=== PATIENT | male | born 1990 | race Caucasian/White ===

== ENCOUNTER 2018-04-07 18:36 | Emergency (ER) | payer SELFPAY ==
[2018-04-07] MEDS ORDERED: ACETAMINOPHEN 500 MG TAB PO ONE (20:01)
[2018-04-07] MEDS ORDERED: IBUPROFEN 600 MG TAB PO ONE (20:01)
--- NOTE | 2018-04-07 20:03 | EDPHY ---
H & P Stated Complaint: Right ankle pain Time Seen by Provider: 04/07/18 18:40 HPI/ROS: Chief complaint: Right ankle injury History of present illness: This is a 28-year-old male who presents to the emergency department for right ankle injury. Patient is steps today twisting his ankle. Since then he has had pain and swelling primarily to the inner aspect of the ankle. Makes it difficult to ambulate. No report of open wounds. No abnormal coolness or paresthesias. No other trauma reported. - Personal History Current Tetanus Diphtheria and Acellular Pertussis (TDAP): Unsure - Medical/Surgical History Hx Asthma: No Hx Chronic Respiratory Disease: No Hx Diabetes: No Hx Cardiac Disease: No Hx Renal Disease: No Hx Cirrhosis: No Hx Alcoholism: No Hx HIV/AIDS: No Hx Splenectomy or Spleen Trauma: No Other PMH: None - Social History Smoking Status: Current every day smoker - Physical Exam Exam: General: Alert, nontoxic Skin: No open wounds to the right lower extremity. Musculoskeletal: Pain to the medial aspect of the ankle and the lower leg. Achilles is intact. He has discomfort moving it. The rest the foot, ankle and lower leg are nontender. The knee is nontender, he is flexing extending it without difficulty. Vascular: DP and PT pulses 2+. Neurologic: Sensation intact throughout the right lower extremity. Constitutional: Initial Vital Signs Temperature (C) 37.1 C 04/07/18 18:39 Heart Rate 94 04/07/18 18:39 Respiratory Rate 12 04/07/18 18:39 Blood Pressure 160/124 H 04/07/18 18:39 O2 Sat (%) 98 04/07/18 18:39 O2 Delivery Mode Room Air Allergies/Adverse Reactions: No Known Allergies Allergy (Unverified 04/07/18 18:41) Home Medications: Medication Instructions Recorded NK [No Known Home Meds] 04/07/18 Medical Decision Making - Diagnostics Imaging Results: Imaging Impressions Ankle X-Ray 04/07/18 18:40 Impression: 1. No definite acute osseous findings. 2. Contour abnormality of the base of fifth metatarsal suggesting sequela of old fracture with apparent persistent lucency at the plantar aspect. Findings discussed with Sonu Calzada PA-C on April 07, 2018 at 1929 hours. Tibia/Fibula X-Ray 04/07/18 18:40 Impression: Age-indeterminate likely old fracture of the base of 5th metatarsal. Findings discussed with JULITO Rosas 04/07/2018 at 19:29. Imaging: I viewed and interpreted images myself ED Course/Re-evaluation: Patient seen under the supervision of my secondary supervising physician Dr. Butch Michelle. Patient presents to the emergency department after twisting his ankle. He has significant pain, primarily to the inner aspect of the ankle. It makes it difficult to ambulate. X-rays show a possible old fracture of the 5th metatarsal otherwise unremarkable. The foot is neurovascularly intact. He is placed in a walking boot and given crutches. Home care is discussed. Return precautions are given. Patient voiced understanding and agreement with plan. Differential Diagnosis: Included but not limited to contusion, sprain or strain, bony fracture - Data Points Medications Given: Discontinued Medications Acetaminophen (Tylenol) 1,000 mg PO EDNOW ONE Stop: 04/07/18 20:02 Last Admin: 04/07/18 20:18 Dose: 1,000 mg Ibuprofen (Motrin) 600 mg PO EDNOW ONE Stop: 04/07/18 20:02 Last Admin: 04/07/18 20:18 Dose: 600 mg Departure - Departure Disposition: Home, Routine, Self-Care Clinical Impression: Ankle sprain Qualifiers: Encounter type: initial encounter Involved ligament of ankle: unspecified ligament Laterality: right Qualified Code(s): S93.401A - Sprain of unspecified ligament of right ankle, initial encounter Condition: Good Instructions: Ankle Sprain (ED) Additional Instructions: Follow-up with primary care doctor or orthopedics for continued evaluation and care Use ibuprofen 600 mg 3 times a day for the next 2-3 days for symptom control Ice the injury, 20 min on, 3 times daily for the next 3 days Follow-up with a primary care doctor this week for recheck of your blood pressure If symptoms worsen or new symptoms develop return to the emergency room for recheck Referrals: Patient,NotPresent [Unknown] - As per Instructions [facility],. [Clinic] - As per Instructions Efren Busby MD [Medical Doctor] - As per Instructions
[2018-04-07 20:19] VITALS: BP 162/109
== END 2018-04-07 20:17 | disposition home or self-care (01) ==
DX: S93.401A Sprain of unspecified ligament of right ankle, initial encounter (principal); F17.200 Nicotine dependence, unspecified, uncomplicated; X58.XXXA Exposure to other specified factors, initial encounter
CPT/HCPCS: L4386